=== PATIENT | male | born 1975 | race Caucasian/White ===

== ENCOUNTER 2023-01-29 14:21 | Emergency (ER) | payer BC, SELFPAY ==
[2023-01-29 14:23] VITALS: BP 116/79; PULSE 113; RESP 20; TEMP 36.7; O2SAT 92; BMI 28.6
--- NOTE | 2023-01-29 14:23 | ED.GENADULT ---
HPI - General Adult General Chief complaint: Ear Problems Stated complaint: R Ear Pain Source: patient, RN notes reviewed and old records reviewed Mode of arrival: ambulatory Limitations: no limitations History of Present Illness HPI narrative: 47-year-old male presents for evaluation of right ear pain Patient reports his pain started about 1 and half days ago This morning he noticed some bloody discharge from the right ear He denies sticking anything in the ear or trauma to the ear No other complaints or concerns Related Data Previous Rx's Medication Instructions Recorded amoxicillin 500 mg tablet 500 mg PO TID #30 tabs 01/29/23 oxycodone 5 mg tablet 5 mg PO Q6H PRN severe pain (scale 01/29/23 score 7-10) #10 tabs Allergies Allergy/AdvReac Type Severity Reaction Status Date / Time Sulfa (Sulfonamide Allergy Hives Verified 01/29/23 14:23 Antibiotics) Review of Systems Constitutional: Constitutional: Denies chills and Denies fever(s) ENT: Reports ear discharge and Reports otalgia Physical Exam ED Vital Signs: Vital Signs - 24 hr 01/29/23 14:23 Temperature 98.1 F Pulse Rate 113 H Respiratory Rate 20 Blood Pressure 116/79 Pulse Oximetry 92 Oxygen Delivery Method Room Air BMI result Body Mass Index 28.6 Const General: healthy appearing, comfortable, no acute distress, alert and awake Nutritional Appearance: well nourished Orientation/consciousness: patient oriented x3 HENMT Other: Patient is a small amount of bloody discharge within the external ear canal. The patient has a partial rupture of the right tympanic membrane. No obvious foreign body Head: Yes normocephalic and Yes atraumatic Ears: external ears normal and right TM abnormal Eyes Eyelids: Yes eyelids normal Conjunctivae: conjunctivae normal Sclerae: sclerae normal Corneas: corneas normal Pupils: Equal, round and reactive pupils present EOM: EOMs intact bilaterally Neck Neck: Yes full ROM Resp Effort & Inspection: normal respiratory effort, able to speak in complete sentences and not labored Neuro General: patient oriented x3 Cranial nerves: Yes Equal, round and reactive pupils present and Yes Bilaterally intact EOM present Cognition (Neuro): normal cognition Extrem Other: Moving all extremities well without any obvious deformities Medical Decision Making Medical Decision Making MDM Narrative: Patient has evidence of acute right otitis media with a partial ruptured TM. Patient be discharged with amoxicillin for 10 days, oxycodone for severe pain. He will be instructed to follow-up with his PCP and try to follow-up with ENT as we do not have any ENT specialist at this hospital. Differential Diagnosis Acute otitis media Foreign body Tympanic membrane rupture Otitis externa Discharge Plan Discharge Clinical Impression: Otitis media with rupture of tympanic membrane Patient Disposition: Home, Self-Care Instructions: Ruptured Eardrum (ED) Additional Instructions: You have a ruptured tympanic membrane/ear drum on the right. This likely happen due to a middle ear infection Do not stick anything in your ear and try not to even get water in your ear Take amoxicillin 3 times daily for the next 10 days Use ibuprofen/Tylenol for pain You may use oxycodone for more severe or breakthrough pain This may make you sleepy, do not drink alcohol or drive after taking It is important he follow up with an ENT specialist. You can call your doctor for referral or try to find 1 on your own, as we do not have any at this hospital Prescriptions: New amoxicillin 500 mg tablet 500 mg PO TID Qty: 30 0RF oxycodone 5 mg tablet 5 mg PO Q6H PRN (Reason: severe pain (scale score 7-10)) Qty: 10 0RF Rx Instructions: Partial Fill upon patient request. Stand Alone Forms: Work/School Release
== END 2023-01-29 14:38 | disposition home or self-care (01) ==
PROVIDERS: Emergency Provider Emergency Medicine; PCP Family Medicine
DX: H66.011 Acute suppurative otitis media with spontaneous rupture of ear drum, right ear (principal); H92.01 Otalgia, right ear
CPT/HCPCS: 99282; 99283

== ENCOUNTER 2023-05-07 16:05 | Emergency (ER) | payer BC, SELFPAY | END 2023-05-07 17:04 | disposition left against medical advice (07) | PROVIDERS: Emergency Provider Emergency Medicine; PCP Family Medicine | DX: R10.9 Unspecified abdominal pain (principal) ==